=== PATIENT | female | born 1990 | race Caucasian/White ===

== ENCOUNTER 2017-02-09 13:41 | Emergency (ER) | payer SELFPAY ==
[2017-02-09 13:46] VITALS: BMI 23.3
[2017-02-09 13:49] VITALS: O2SAT 100
[2017-02-09 14:47] LABS: RBC URINE 2 /hpf (0-3); URINE BILIRUBIN NEGATIVE (NEGATIVE); URINE BLOOD 2+ (NEGATIVE); URINE COLOR Yellow (YELLOW); URINE GLUCOSE (UA) NORMAL (Normal); URINE KETONE NEGATIVE (NEGATIVE); URINE LEUKOCYTE ESTERASE NEG Leu/uL (Negative); URINE PROTEIN NEGATIVE (NEGATIVE); URINE UROBILINOGEN NORMAL mg/dL (0.2-1.0); WBC URINE 1 /hpf (0-5)
--- NOTE | 2017-02-09 15:40 | RAD ---
PROCEDURE: CHEST RADIOGRAPH, 1 VIEW HISTORY: Syncope COMPARISON: None available. FINDINGS: LUNGS: Clear. PLEURA: No pneumothorax or pleural fluid seen. CARDIOVASCULAR: Normal. OSSEOUS STRUCTURES: No significant abnormalities. VISUALIZED UPPER ABDOMEN: Normal. OTHER FINDINGS: None. IMPRESSION: No active disease.
[2017-02-09 15:43] LABS: BASO % 0.3 % (0.0-2.0); EOS % 0.6 % (0.0-4.0); HEMATOCRIT 36.6 % (34.0-47.0); LYMPH # 1.9 K/uL (1.0-4.3); LYMPH % 24.3 % (20.0-40.0); MEAN CORPUSCULAR HEMOGLOBIN 28.3 pg (27.0-31.0); MEAN CORPUSCULAR HGB CONC 33.5 g/dL (33.0-37.0); MEAN PLATELET VOLUME 8.8 fL (7.2-11.7); MONO # 0.5 K/uL (0.0-0.8); RED CELL DISTRIBUTION WIDTH 13.6 % (11.5-14.5); WHITE BLOOD COUNT 7.9 K/uL (4.8-10.8)
[2017-02-09 15:45] LABS: MEAN CELL VOLUME 84.4 fL (81.0-99.0)
[2017-02-09 15:58] LABS: INR 1.2; PARTIAL THROMBOPLASTIN TIME 27 SECONDS (21-34)
[2017-02-09 16:14] LABS: ALB/GLOB RATIO 1.2 (1.0-2.1); ALKALINE PHOSPHATASE 34 U/L (38-126); ALT/SGPT 25 U/L (9-52); AST/SGOT 21 U/L (14-36); BILIRUBIN,TOTAL 0.7 mg/dL (0.2-1.3); BLOOD UREA NITROGEN 14 mg/dL (7-17); CALCIUM 8.6 mg/dl (8.6-10.4); CARBON DIOXIDE 28 mmol/L (22-30); CHLORIDE 98 mmol/L (98-107); GFR AFRICAN-AMERICAN > 60; GLUCOSE,RANDOM 89 mg/dL (65-105); POTASSIUM 3.9 mmol/L (3.6-5.2); SODIUM 134 mmol/L (132-148); TOTAL PROTEIN 7.8 g/dL (6.3-8.3)
--- NOTE | 2017-02-09 16:43 | C.PDOC ---
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 History/Exam Limitations: language barrier Onset/Duration Of Symptoms: Hrs (1) Current Symptoms Are (Timing): Better Number Of Syncopal Episodes: 1 Activity At Onset Of Symptoms: Walking Associated Symptoms Preceding Syncopal Episode: Lightheadedness Fall Associated With With Symptoms: No Severity: Moderate Additional History Per: Prior Records - Symptoms Of CVA Recent Head Trauma: No Past Medical History Reviewed: Historical Data, Nursing Documentation, Vital Signs Vital Signs: Last Vital Signs Temp 98.7 F 02/09/17 13:46 Pulse 60 02/09/17 13:46 Resp 18 02/09/17 13:46 BP 132/82 02/09/17 13:46 Pulse Ox 100 02/09/17 13:46 - Medical History PMH: No Chronic Diseases - [facility] Procedures DELIVERY OF PRODUCTS OF CONCEPTION, EXTERNAL APPROACH (10/11/15) MONITORING OF POC, CARDIAC RATE, 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 Constitutional: Negative for: Fever Cardiovascular: Positive for: Chest Pain Respiratory: Negative for: Shortness of Breath, Hemoptysis Gastrointestinal: Negative for: Vomiting, Abdominal Pain Genitourinary: Negative for: Dysuria Musculoskeletal: Negative for: Neck Pain, Back Pain, Leg Pain Skin: Negative for: Rash Neurological: Negative for: Weakness, Numbness, Seizures, Headache Psych: Positive for: Anxiety Physical Exam - Physical Exam Appears: Non-toxic, No Acute Distress Skin: Normal Color, Warm, Dry, No Rash Head: Atraumatic, Normacephalic Eye(s): bilateral: Normal Inspection, PERRL, EOMI Neck: Normal ROM, Supple Cardiovascular: Rhythm Regular Respiratory: Normal Breath Sounds, No Accessory Muscle Use Gastrointestinal/Abdominal: Soft, No Tenderness Back: No CVA Tenderness Extremity: Normal ROM, No Pedal Edema, No Calf Tenderness Neurological/Psych: Oriented x3, Normal Motor, Normal Sensation ED Course And Treatment - Laboratory Results Result Diagrams: 02/09/17 15:39 02/09/17 15:39 Lab Interpretation: No Acute Changes Urine POC: Negative ECG: Interpreted By Me, Viewed By Me ECG Rhythm: Sinus Rhythm, Nonspecific Changes ECG Interpretation: No Acute Changes Rate From EC O2 Sat by Pulse Oximetry: 100 Pulse Ox Interpretation: Normal - Radiology CXR: Viewed By Me, Read By Radiologist CXR Interpretation: Yes: No Acute Disease Progress Note: Pt is now asymptomatic. Reevaluation Time: 16:44 Reassessment Condition: Improved Disposition Counseled Patient/Family Regarding: Studies Performed, Diagnosis, Need For Followup - Disposition Referrals: [facility] [Outside] Disposition: HOME/ ROUTINE Disposition Time: 16:45 Condition: IMPROVED Additional Instructions: Follow up with your doctor or in the clinic for further evaluation and treatment. Return to the ER if you pass out again, develop dizziness, shortness of breath, worsening of symptoms or if you have any other concerns. Instructions: Syncope (ED) Print Language: YI - Clinical Impression Clinical Impression: Syncope
[2017-02-09 16:45] VITALS: BP 138/84; PULSE 83; RESP 17; TEMP 98.3
--- NOTE | 2017-02-11 13:20 | CARD ---
APPROVED REPORT EKG Measurement Heart [id number] <Conclusion> Sinus bradycardia Anteroseptal infarct, age undetermined cannot be excluded. Abnormal ECG
== END 2017-02-09 16:51 | disposition home or self-care (01) ==
LOC: C.ER 13:41
DX: R55 Syncope and collapse (principal)

== ENCOUNTER 2017-03-09 15:50 | Emergency (ER) | payer OTHER ==
[2017-03-09 15:50] VITALS: BMI 23.3
[2017-03-09 16:09] VITALS: TEMP 98.8
[2017-03-09 17:10] LABS: ALB/GLOB RATIO 1.3 (1.0-2.1); ALBUMIN 4.3 g/dL (3.5-5.0); ALT/SGPT 19 U/L (9-52); AST/SGOT 20 U/L (14-36); BLOOD UREA NITROGEN 13 mg/dL (7-17); CALCIUM 8.2 mg/dl (8.6-10.4); GFR AFRICAN-AMERICAN > 60; GFR NON-AFRICAN AMERICAN > 60
[2017-03-09 17:13] LABS: HCG,QUALITATIVE URINE NEGATIVE (NEGATIVE)
[2017-03-09 17:19] LABS: BASO # 0.1 K/uL (0.0-0.2); BASO % 0.6 % (0.0-2.0); EOS # 0.2 K/uL (0.0-0.7); EOS % 1.4 % (0.0-4.0); HEMOGLOBIN 12.9 g/dL (11.0-16.0); LYMPH # 3.3 K/uL (1.0-4.3); LYMPH % 28.3 % (20.0-40.0); MEAN CELL VOLUME 83.9 fL (81.0-99.0); MEAN CORPUSCULAR HEMOGLOBIN 27.5 pg (27.0-31.0); MEAN CORPUSCULAR HGB CONC 32.8 g/dL (33.0-37.0); MEAN PLATELET VOLUME 9.1 fL (7.2-11.7); MONO # 0.8 K/uL (0.0-0.8); MONO % 6.7 % (0.0-10.0); NEUT # 7.3 K/uL (1.8-7.0); RBC 4.68 Mil/uL (3.80-5.20); RED CELL DISTRIBUTION WIDTH 13.8 % (11.5-14.5); WHITE BLOOD COUNT 11.5 K/uL (4.8-10.8)
[2017-03-09 17:26] LABS: SQUAMOUS EPITHIAL 1 /hpf (0-5); URINE BACTERIA RARE (<OCC); URINE BILIRUBIN NEGATIVE (NEGATIVE); URINE BLOOD 2+ (NEGATIVE); URINE CLARITY Clear (Clear); URINE COLOR Yellow (YELLOW); URINE GLUCOSE (UA) NORMAL (Normal); URINE LEUKOCYTE ESTERASE NEG Leu/uL (Negative); URINE NITRATE NEGATIVE (NEGATIVE); URINE PROTEIN NEGATIVE (NEGATIVE)
--- NOTE | 2017-03-09 17:34 | C.PDOC ---
History Of Present Illness 27-year-old female, presents to the emergency department with complaints of several day hx of pain to left upper back that radiates to the neck. States she feels dizzy and that she feels her "hemoglobin is low." Denies trauma, fever, cough, numbness/weakness. No other complaints at this time. Time Seen by Provider: 03/09/17 16:13 Chief Complaint (Nursing): Flu-like Symptoms History Per: Patient History/Exam Limitations: no limitations Onset/Duration Of Symptoms: Intermittent Episodes Current Symptoms Are (Timing): Still Present Recent travel outside of the [place]: No Past Medical History Reviewed: Historical Data, Nursing Documentation, Vital Signs Vital Signs: Last Vital Signs Temp 98.8 F 03/09/17 16:07 Pulse 70 03/09/17 18:11 Resp 16 03/09/17 18:11 BP 118/69 03/09/17 18:11 Pulse Ox 100 03/09/17 20:00 - Medical History PMH: No Chronic Diseases - [facility] Procedures DELIVERY OF PRODUCTS OF CONCEPTION, EXTERNAL APPROACH (10/11/15) MONITORING OF POC, CARDIAC RATE, 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 Constitutional: Negative for: Fever, Chills Respiratory: Negative for: Shortness of Breath Musculoskeletal: Positive for: Back Pain Neurological: Negative for: Weakness, Numbness Physical Exam - Physical Exam Appears: Non-toxic, No Acute Distress Skin: Warm, Dry, No Rash Head: Atraumatic, Normacephalic Eye(s): bilateral: Normal Inspection Nose: Normal Oral Mucosa: Moist Lips: Normal Appearing Throat: No Erythema, No Exudate Neck: Normal ROM, Supple Chest: Symmetrical Cardiovascular: Rhythm Regular, No Friction Rub, No Murmur Respiratory: Normal Breath Sounds, No Accessory Muscle Use, No Rales, No Rhonchi , No Stridor, No Wheezing Gastrointestinal/Abdominal: Soft, No Tenderness Back: No CVA Tenderness, No Vertebral Tenderness, Paraspinal Tenderness (Left) Extremity: Normal ROM, No Tenderness, No Swelling Neurological/Psych: Oriented x3, Normal Speech, Normal Motor, Normal Sensation Gait: Steady ED Course And Treatment - Laboratory Results Result Diagrams: 03/09/17 16:51 03/09/17 16:51 O2 Sat by Pulse Oximetry: 100 (on RA) Pulse Ox Interpretation: Normal Medical Decision Making Medical Decision Making: On re-exam, the patient is resting comfortably. Lungs are CTA, heart is RRR, abdomen is soft, non-tender and the patient is tolerating PO well. Ambulatory in the ED with steady gait. Follow up with the medical doctor within 1-2 days. Return if worsened. Disposition - Disposition Referrals: [facility] [Outside] Disposition: HOME/ ROUTINE Disposition Time: 18:01 Condition: GOOD Additional Instructions: Follow up with the medical doctor within 1-2 days. Return if worsened. Prescriptions: Naproxen [Naprosyn] 500 mg PO BID #20 tab Instructions: Musculoskeletal Pain (ED) Forms: [employer] (Armenian) Print Language: MOROCCAN - Clinical Impression Clinical Impression: Musculoskeletal chest pain, Dizziness - Scribe Statement The provider has reviewed the documentation as recorded by the Scribe (Juan Miguel Mcguire) All medical record entries made by the Scribe were at my direction and personally dictated by me. I have reviewed the chart and agree that the record accurately reflects my personal performance of the history, physical exam, medical decision making, and the department course for this patient. I have also personally directed, reviewed, and agree with the discharge instructions and disposition.
[2017-03-09 18:11] VITALS: BP 118/69; PULSE 70; RESP 16
[2017-03-09 20:01] VITALS: O2SAT 100
--- NOTE | 2017-03-10 10:03 | RAD ---
PROCEDURE: Radiographs of the chest and abdomen (obstructive series) HISTORY: Abd Pain COMPARISON: No prior. TECHNIQUE: AP radiograph of the chest, with upright and supine radiographs of the abdomen. FINDINGS: CHEST: Lungs: Clear. Cardiovascular: Normal size heart. No pulmonary vascular congestion. Pleura: No pleural fluid. No pneumothorax. Other findings: None. ABDOMEN AND PELVIS: Bowel: Unremarkable bowel gas pattern. Prominent amount of retained colonic stool. No evidence of mechanical obstruction. Free air: None. Bones: Unremarkable. Other findings: None. IMPRESSION: Unremarkable radiographs of chest and abdomen. Prominent amount of retained colonic stool.
== END 2017-03-09 18:11 | disposition home or self-care (01) ==
LOC: C.ER 15:50
DX: R07.89 Other chest pain (principal); R42 Dizziness and giddiness
CPT/HCPCS: 74022; 80053; 81001; 84703; 85025; 96365; 96375; 99284; J1885; J2765

== ENCOUNTER 2017-04-03 00:27 | Emergency (ER) | payer OTHER ==
[2017-04-03 00:28] VITALS: BMI 23.3
[2017-04-03 00:38] VITALS: TEMP 98
--- NOTE | 2017-04-03 01:09 | C.PDOC ---
History Of Present Illness 27 year old female with PMHx of anxiety presents to the ED co SOB, chest pain and palpitations. Patient is also c/o a persistent pain in the left scapular region that radiates to her left breast, patient states pain does not change with movement. Patient states she had X-rays done because the pain in her left arm which came back negative. Patient is asymptomatic in the ED, denies fever, chills, headache, vomit, diarrhea, weakness, numbness. Chief Complaint (Nursing): Palpitations History Per: Patient History/Exam Limitations: no limitations Onset/Duration Of Symptoms: Days Current Symptoms Are (Timing): Still Present Quality: Tightness Modifying Factors: None Exacerbating Factors: None Alleviating Factors: None Recent travel outside of the [place]: No Additional History Per: Patient Past Medical History Reviewed: Historical Data, Nursing Documentation, Vital Signs Vital Signs: Last Vital Signs Temp 98 F 04/03/17 00:36 Pulse 60 04/03/17 02:08 Resp 21 04/03/17 02:08 BP 124/68 04/03/17 02:08 Pulse Ox 98 04/03/17 02:08 - Medical History PMH: Anxiety Surgical History: No Surg Hx - [facility] Procedures DELIVERY OF PRODUCTS OF CONCEPTION, EXTERNAL APPROACH (10/11/15) MONITORING OF POC, CARDIAC RATE, REMOTELY PILOTED 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 Negative for: Cough Gastrointestinal: Negative for: Nausea, Vomiting, Abdominal Pain Skin: Negative for: Rash Neurological: Negative for: Weakness, Numbness, Headache, Dizziness Physical Exam - Physical Exam Appears: Non-toxic, No Acute Distress Skin: Normal Color, Warm, Dry Head: Atraumatic, Normacephalic Eye(s): bilateral: Normal Inspection Nose: No Discharge, No Deformity Oral Mucosa: Moist Neck: Normal ROM, Supple Chest: Symmetrical Cardiovascular: Rhythm Regular, No Murmur Respiratory: Normal Breath Sounds, No Rales, No Rhonchi, No Wheezing Gastrointestinal/Abdominal: Soft, No Tenderness, No Guarding, No Rebound Back: Other (left scapular region tenderness) Extremity: Normal ROM, No Tenderness, No Deformity, No Swelling Neurological/Psych: Oriented x3, Normal Speech, Normal Cognition, Normal Motor, Normal Sensation Gait: Steady ED Course And Treatment - Laboratory Results Result Diagrams: 04/03/17 01:37 04/03/17 01:37 ECG: Interpreted By Me ECG Rhythm: Sinus Rhythm, Sinus Bradycardia ECG Interpretation: Normal Interpretation Of ECG: Poor R wave progression,no old ekgs for comparison O2 Sat by Pulse Oximetry: 100 (On RA) Pulse Ox Interpretation: Normal Medical Decision Making Medical Decision Making: Impression: chest pain, palpitations Plan: * EKG * Labs * CXR * Xanax 0.25 mg PO Disposition - Disposition Referrals: [facility] at [facility] [Outside] Disposition: HOME/ ROUTINE Disposition Time: 03:35 Condition: FAIR Prescriptions: Alprazolam [Xanax] 0.25 mg PO TID PRN #12 tablet PRN Reason: Anxiety Instructions: Panic Disorder, Palpitations Forms: Gen Discharge Inst Hungarian, [email or web address] (Croatian) Print Language: MALTESE - Clinical Impression Clinical Impression: Palpitations, Musculoskeletal chest pain, Anxiety - Scribe Statement The provider has reviewed the documentation as recorded by the Scribsari Guillermo All medical record entries made by the Scribe were at my direction and personally dictated by me. I have reviewed the chart and agree that the record accurately reflects my personal performance of the history, physical exam, medical decision making, and the department course for this patient. I have also personally directed, reviewed, and agree with the discharge instructions and disposition.
[2017-04-03 01:41] LABS: BASO % 0.4 % (0.0-2.0); EOS # 0.1 K/uL (0.0-0.7); EOS % 0.8 % (0.0-4.0); HEMOGLOBIN 12.5 g/dL (11.0-16.0); LYMPH # 2.3 K/uL (1.0-4.3); MEAN CELL VOLUME 84.5 fL (81.0-99.0); MEAN CORPUSCULAR HGB CONC 33.2 g/dL (33.0-37.0); MONO # 0.8 K/uL (0.0-0.8); MONO % 7.2 % (0.0-10.0); NEUT # 8.3 K/uL (1.8-7.0); NEUT % 71.6 % (50.0-75.0); RBC 4.47 Mil/uL (3.80-5.20); RED CELL DISTRIBUTION WIDTH 13.4 % (11.5-14.5); WHITE BLOOD COUNT 11.6 K/uL (4.8-10.8)
[2017-04-03 01:58] LABS: ALB/GLOB RATIO 1.2 (1.0-2.1); ALBUMIN 4.2 g/dL (3.5-5.0); ALT/SGPT 35 U/L (9-52); AST/SGOT 19 U/L (14-36); BLOOD UREA NITROGEN 14 mg/dL (7-17); CALCIUM 8.9 mg/dl (8.6-10.4); GFR AFRICAN-AMERICAN > 60; GFR NON-AFRICAN AMERICAN > 60
[2017-04-03 02:09] VITALS: BP 124/68; PULSE 60; RESP 21
[2017-04-03 03:36] VITALS: O2SAT 100
--- NOTE | 2017-04-03 10:54 | RAD ---
PROCEDURE: CHEST RADIOGRAPH, 1 VIEW HISTORY: chest pain COMPARISON: Comparison is made with 02/09/2017 FINDINGS: LUNGS: Clear. PLEURA: No pneumothorax or pleural fluid seen. CARDIOVASCULAR: Normal. OSSEOUS STRUCTURES: No significant abnormalities. VISUALIZED UPPER ABDOMEN: Normal. OTHER FINDINGS: None. IMPRESSION: No active disease.
--- NOTE | 2017-04-05 22:52 | CARD ---
APPROVED REPORT EKG Measurement Heart [id number] PA [id number] <Conclusion> Sinus bradycardia Low voltage QRS Poor R wave progression Borderline EKG for age / sex
== END 2017-04-03 03:20 | disposition home or self-care (01) ==
LOC: C.ER 00:27
DX: F41.9 Anxiety disorder, unspecified (principal); R00.2 Palpitations; R07.89 Other chest pain

== ENCOUNTER 2017-06-21 19:05 | Emergency (ER) | payer OTHER ==
[2017-06-21 19:05] VITALS: BMI 23.3
[2017-06-21 22:51] LABS: BASO % 0.5 % (0.0-2.0); EOS # 0.4 K/uL (0.0-0.7); EOS % 5.4 % (0.0-4.0); HEMOGLOBIN 12.7 g/dL (11.0-16.0); LYMPH # 2.4 K/uL (1.0-4.3); LYMPH % 30.9 % (20.0-40.0); MEAN CELL VOLUME 85.5 fL (81.0-99.0); MEAN CORPUSCULAR HEMOGLOBIN 28.5 pg (27.0-31.0); MEAN CORPUSCULAR HGB CONC 33.4 g/dL (33.0-37.0); MEAN PLATELET VOLUME 8.5 fL (7.2-11.7); MONO % 12.3 % (0.0-10.0); NEUT % 50.9 % (50.0-75.0); RBC 4.46 Mil/uL (3.80-5.20); RED CELL DISTRIBUTION WIDTH 13.8 % (11.5-14.5); WHITE BLOOD COUNT 7.8 K/uL (4.8-10.8)
[2017-06-21 23:07] LABS: ALB/GLOB RATIO 1.2 (1.0-2.1); ALBUMIN 4.5 g/dL (3.5-5.0); ALT/SGPT 19 U/L (9-52); AST/SGOT 25 U/L (14-36); BLOOD UREA NITROGEN 15 mg/dL (7-17); CALCIUM 8.8 mg/dl (8.6-10.4); GFR AFRICAN-AMERICAN > 60; GFR NON-AFRICAN AMERICAN > 60
--- NOTE | 2017-06-21 23:27 | C.PDOC ---
History Of Present Illness 27yo female, presents to ED with complaints of intermittent left sided headachex 2 days. She also reports left upper back pain radiating to her left shoulder, and denies any trauma or injury to the area. She denies any SOB, weakness, numbness, dizziness, and offers no other medical complaints. Time Seen by Provider: 06/21/17 21:12 Chief Complaint (Nursing): Back Pain History Per: Patient History/Exam Limitations: no limitations Onset/Duration Of Symptoms: Intermittent Episodes Current Symptoms Are (Timing): Still Present Past Medical History Reviewed: Historical Data, Nursing Documentation, Vital Signs Vital Signs: Last Vital Signs Temp 97.9 F 06/21/17 23:29 Pulse 60 06/21/17 23:29 Resp 18 06/21/17 23:29 BP 130/60 06/21/17 23:29 Pulse Ox 100 06/22/17 13:00 - Medical History PMH: Anxiety Surgical History: No Surg Hx - [facility] Procedures DELIVERY OF PRODUCTS OF CONCEPTION, EXTERNAL APPROACH (10/11/15) MONITORING OF POC, CARDIAC RATE, CLERICAL COORDINATOR APPROACH (10/11/15) REPAIR PERINEUM SKIN, EXTERNAL APPROACH (10/11/15) Family History: States: Unknown Family Hx - Social History Hx Tobacco Use: No Hx Alcohol Use: Yes Hx Substance Use: No - Immunization History Hx Tetanus Toxoid Vaccination: No Hx Influenza Vaccination: No Hx Pneumococcal Vaccination: No Review Of Systems Except As Marked, All Systems Reviewed And Found Negative. Constitutional: Negative for: Fever, Chills Neurological: Positive for: Headache. Negative for: Weakness, Numbness Physical Exam - Physical Exam Appears: Non-toxic, No Acute Distress Skin: Normal Color, Warm, Dry Head: Atraumatic, Normacephalic Eye(s): bilateral: Normal Inspection, PERRL Oral Mucosa: Moist Neck: Normal ROM, Supple Chest: Symmetrical Cardiovascular: Rhythm Regular Respiratory: Normal Breath Sounds Back: Normal Inspection, No Vertebral Tenderness, No Paraspinal Tenderness Extremity: Normal ROM Neurological/Psych: Oriented x3, Normal Speech, Normal Cognition, Normal Cranial Nerves, Normal Motor, Normal Sensation, No Other (facial droop) ED Course And Treatment - Laboratory Results Result Diagrams: 06/21/17 22:41 06/21/17 22:41 ECG: Interpreted By Me, Viewed By Me (and DR sheridan) ECG Rhythm: Sinus Bradycardia (at 54), Nonspecific Changes ECG Interpretation: No Acute Changes O2 Sat by Pulse Oximetry: 100 Pulse Ox Interpretation: Normal - Radiology CXR: Interpreted by Me CXR Interpretation: Yes: No Acute Disease. No: Infiltrates, Cardiomegaly Progress Note: Labs, CXR and EKG reviewed with no acute findings. Patinet stable for discharge home, instructed to follow up with PCP in 2-3 days. Disposition Counseled Patient/Family Regarding: Studies Performed, Diagnosis, Need For Followup - Disposition Referrals: [facility] [Outside] Disposition: HOME/ ROUTINE Disposition Time: 23:25 Condition: STABLE Additional Instructions: Tylenol or advil for pain Follow up in clinic Return to ER if worse Instructions: Muscle and Bone Pain (DC) Forms: [employer] (Sierra Leonean) Print Language: SWEDISH - Clinical Impression Clinical Impression: Musculoskeletal pain - PA / BUSINESS ASSOCIATE / Resident Statement MD/DO has reviewed & agrees with the documentation as recorded. - Scribe Statement The provider has reviewed the documentation as recorded by the Scribe (Jeanine Hurst) Provider Attestation: All medical record entries made by the Scribe were at my direction and personally dictated by me. I have reviewed the chart and agree that the record accurately reflects my personal performance of the history, physical exam, medical decision making, and the department course for this patient. I have also personally directed, reviewed, and agree with the discharge instructions and disposition.
[2017-06-21 23:30] VITALS: BP 130/60; PULSE 60; RESP 18; TEMP 97.9
--- NOTE | 2017-06-22 08:21 | RAD ---
HISTORY: chest , back pain COMPARISON: Chest x-ray 04/03/2017 TECHNIQUE: Chest PA and lateral FINDINGS: LUNGS: No focal consolidation is seen. PLEURA: No pleural effusion is identified. CARDIOVASCULAR: Heart size is within normal limits. OSSEOUS STRUCTURES: Visualized osseous structures are unremarkable. VISUALIZED UPPER ABDOMEN: Unremarkable. OTHER FINDINGS: None. IMPRESSION: No acute cardiopulmonary process seen.
--- NOTE | 2017-06-22 12:53 | CARD ---
APPROVED REPORT EKG Measurement Heart [id number] DE [id number] <Conclusion> Sinus bradycardia Anteroseptal infarct, age undetermined Abnormal ECG
[2017-06-22 12:57] VITALS: O2SAT 100
== END 2017-06-21 23:30 | disposition home or self-care (01) ==
LOC: C.ER 19:05
DX: M79.1 Myalgia (principal); F41.9 Anxiety disorder, unspecified

== ENCOUNTER 2017-11-01 20:57 | Emergency (ER) | payer OTHER ==
[2017-11-01 20:57] VITALS: BMI 23.3
[2017-11-01 21:13] VITALS: BP 115/74; PULSE 58; RESP 20; TEMP 98.6; O2SAT 100
--- NOTE | 2017-11-01 21:44 | C.PDOC ---
History Of Present Illness 27 yo female c/o left neck pain radiating down the left arm for 3 days. Pt notes that she has had left back/ neck pain for a "long time" with negative Xray. Pain is aggravated by movement. Has not taken any medication for pain. 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 Denies trauma, chest pain, sob, changes in sensation, headache, fever. 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: Patient, Solution Developer History/Exam Limitations: language barrier Onset/Duration Of Symptoms: Days Current Symptoms Are (Timing): Still Present Quality: Aching, Tightness Exacerbating Factor(s): Movement Past Medical History Vital Signs: Last Vital Signs Temp 98.6 F 11/01/17 21:09 Pulse 58 L 11/01/17 21:09 Resp 20 11/01/17 21:09 BP 115/74 11/01/17 21:09 Pulse Ox 100 11/01/17 21:44 - Medical History PMH: Anxiety - [facility] Procedures DELIVERY OF PRODUCTS OF CONCEPTION, EXTERNAL APPROACH (10/11/15) MONITORING OF POC, CARDIAC RATE, MUTTON PUNCHER APPROACH (10/11/15) REPAIR PERINEUM SKIN, EXTERNAL APPROACH (10/11/15) Family History: States: Unknown Family Hx - Social History Hx Tobacco Use: No Hx Alcohol Use: Yes Hx Substance Use: No - Immunization History Hx Tetanus Toxoid Vaccination: No Hx Influenza Vaccination: No Hx Pneumococcal Vaccination: No Review Of Systems Except As Marked, All Systems Reviewed And Found Negative. Musculoskeletal: Positive for: Neck Pain (left), Shoulder Pain (left) Physical Exam - Physical Exam Appears: Well, Non-toxic, No Acute Distress Skin: Normal Color, Warm, Dry Head: Atraumatic, Normacephalic Eye(s): bilateral: Normal Inspection, EOMI Nose: Normal Oral Mucosa: Moist Throat: Normal, No Erythema, No Exudate, No Drooling Neck: Normal ROM, No Midline Cervical Tenderness, Paracervical Tenderness (left paracervical), No Step Off Deformity, Supple (no meningismus) Lymphatic: Normal Exam Chest: Symmetrical Cardiovascular: Rhythm Regular Respiratory: Normal Breath Sounds, No Accessory Muscle Use Back: Normal Inspection Extremity: Normal ROM, Tenderness (left shoulder/deltoid) Pulses: Left Radial: Normal, Right Radial: Normal Neurological/Psych: Oriented x3, Normal Speech, Normal Motor (5/5 against resistance), Normal Sensation ED Course And Treatment O2 Sat by Pulse Oximetry: 100 Progress Note: Pt was instructed RICE, NSAIDS and follow up with her PMD in 1-2 days. Discussed return precautions. Disposition - Disposition Disposition: HOME/ ROUTINE Disposition Time: 21:43 Condition: STABLE Additional Instructions: Follow up with the clinic in 1-2 days. Return to ER if symptoms persist or worsen. Brittny un seguimiento con la clnica en 1-2 [place]. Regrese a la sofi de emergencias si los sntomas persisten o empeoran. Prescriptions: Naproxen [Naprosyn] 1 tab PO BID PRN #20 tab PRN Reason: Pain Instructions: Shoulder Pain (DC) Forms: [facility] (Thai) Print Language: NIUEAN - Clinical Impression Clinical Impression: Musculoskeletal pain
== END 2017-11-01 22:18 | disposition home or self-care (01) ==
LOC: C.ER 20:57
DX: M79.1 Myalgia (principal)
CPT/HCPCS: 96372; 99283; J1885